=== PATIENT | female | born 1975 | race Caucasian/White ===

== ENCOUNTER 2020-12-26 08:10 | Observation (INO) | payer MEDICAID ==
[2020-12-21 15:48] LABS: PLATELET COUNT 228 x10^3mcL (179-408)
[2020-12-21 15:49] LABS: ALBUMIN 3.5 g/dL (3.4-5.0); ALKALINE PHOSPHATASE 149 U/L (46-116); ALT/SGPT 34 U/L (14-59); AST/SGOT 15 U/L (15-37); BILIRUBIN TOTAL 0.2 mg/dL (0.20-1.00); CALCIUM 8.4 mg/dL (8.5-10.1); CARBON DIOXIDE 27.1 mmol/L (21-32); CHLORIDE SERUM 97 mmol/L (98-107); CREATININE SERUM 0.6 mg/dL (0.6-1.0); GFR1 > 60 mL/min; GLUCOSE SERUM 306 mg/dL (74-106); POTASSIUM SERUM 3.7 mmol/L (3.5-5.1); SODIUM SERUM 128 mmol/L (136-145); TOTAL PROTEIN, SERUM 7.5 g/dL (6.4-8.2)
[2020-12-21 15:52] LABS: RED CELL DISTRIBUTION WIDTH 16.5 % (12.3-17.7)
--- NOTE | 2020-12-21 16:18 | NUR ---
COPIES OF LABS AND EKG TAKEN TO OR FOR ANESTHESIA TO REVIEW. FAXED ALSO TO DR FRANKI MCLAUGHLIN'S OFFICE, SPOKE WITH JYOTSNA. WILL HAVE MD REVIEW AND CALL WITH ANY FURTHER ORDERS.
--- NOTE | 2020-12-22 14:23 | NUR ---
COPY OF H&P REVIEWED BY ANESTHESIOLOGIST DR GAGE. PT WILL NEED MEDICAL CLEARANCE TO CONTROL BLOOD SUGAR PRIOR TO SURGERY. [id number]=[phone] ON 12-21-20 PREOP VISIT. CALL TO DR FRANKI MCLAUGHLIN'S OFFICE, SPOKE WITH LOCO. SHE WILL CALL PT TO SEE PCP PRIOR TO SURGERY FOR CLEARANCE.
--- NOTE | 2020-12-25 11:35 | NUR ---
T/C DR. MCLAUGHLIN'S OFFICE AND TALKED TO LOCO TO FOLLOW UP MEDICAL CLEARANCE DUE TO PATIENT'S HIGH BS. LOCO WILL TALK TO DR. MCLAUGHLIN FOR FURTHER INSTRUCTION AND WILL CALL [facility] [place] FOR UPDATE. ALSO, T/C THE PATIENT; PER PATIENT, DR. MCLAUGHLIN'S OFFICE STAFF CALLED TO TALK TO HER ON FRIDAY ABOUT HER HIGH BLOOD SUGAR LEVEL.
[~2020-12-26] VITALS: Ht 175.3 cm; Wt 68.3 kg
[2020-12-26 08:34] VITALS: BP 119/76
[2020-12-26 08:57] LABS: CALCIUM 9.2 mg/dL (8.5-10.1); CARBON DIOXIDE 30.3 mmol/L (21-32); CHLORIDE SERUM 102 mmol/L (98-107); CREATININE SERUM 0.6 mg/dL (0.6-1.0); GFR1 > 60 mL/min; GLUCOSE SERUM 121 mg/dL (74-106); POTASSIUM SERUM 3.7 mmol/L (3.5-5.1); SODIUM SERUM 138 mmol/L (136-145)
--- NOTE | 2020-12-26 18:36 | NUR ---
RECEIVED FROM OR AWAKE, ALERT AND ORIENTED X4. IN NO RESP. DISTRESS. ON RA SATS 97%. NO SOB NOTED. NO C/O PAIN OR DISCOMFORT. INCISION SITE TO ELEANOR. BREASTS WITH DRESSING COVERED SECURED WTH ABD. BINDER. NO VISIBLE BLEEDING NOTED, NO DISCHARGE. ALPHONSO DRAINS X4 IN PLACE DRAINING SMALL AMOUNT OF S/S DRAINAGE. SECURED IN PLACE. PT ORIENTED TO ROOM, CALL LIGHT WITHIN REACH. WILL CONTINUE WITH PLAN OF CARE.
[2020-12-26 18:53] VITALS: BP 128/78
--- NOTE | 2020-12-26 19:25 | NUR ---
PT TRIED TO GET OOB TO GO TO THE BATHROOM BUT BECAME SO DIZZY AND NAUSEATED. ASSISTED BACK TO BED AND CALL LIGHT WITHIN REACH. ENDORSED TO INCOMING SHIFT FOR CONT. OF CARE.
--- NOTE | 2020-12-26 19:48 | NUR ---
PT RECEIVED LYING IN BED WITH HOB ELEVATED 30 DEGREES AWAKE AND RESTING. A/OX4, CALM AND COOPERATIVE. M/S. DENIES CHEST PAIN AND LIGHTHEADEDNESS. RESPIRATIONS EVEN, UNLABORED, DIMINISHED, RA, DENIES SOB. BS ACTIVE, ABD SOFT AND ROUND, NON TENDER. DENIES N/V. NO BM OR PASSING OF FLATUS POST-OP. UOP ADEQUATE. ALPHONSO DRAIN X 4, 2 TO EACH BREAST. SEROSANGUINEOUS OUTPUT. ABD BINDER IN PLACE. PT REPORTS PAIN, BUT REFUSES PAIN MEDS AT THIS TIME. SL LFA 20G, PATENT, NO COMPLICATIONS TO SITE. PT HAS GENERALIZED WEAKNESS AND REPORTS DIZZINESS WITH ATTEMPT TO AMBULATE. BEDREST AT THIS TIME. BED IN LOWEST POSOTION, SIDE RAILS X 2, CALL LIGHT WITHIN REACH.
[2020-12-26 21:23] VITALS: BP 106/65
[2020-12-27 05:16] VITALS: BP 102/54
--- NOTE | 2020-12-27 06:29 | NUR ---
NO ACUTE CHANGES OVERNIGHT. PT REMAINS A/OX4 ON RA. PT REPORTS PAIN TO CHEST HOWEVER REFUSES PAIN MEDICATION AT THIS TIME DUE TO EMPTY STOMACH. PT PROVIDED WITH APPLE SAUCE. PT EDUCATED TO REPORT N/V OR READINESS FOR PAIN MEDICATION, VERBALIZED UNDERSTANDING. PT AMBULATORY WITH STEADY GAIT. ALPHONSO DRAIN X 4, PATENT, SEROSANGUINEOUS OUTOUT. TOTAL OUTPUT 90ML. ALPHONSO#1 20ML, ALPHONSO#2 35ML, ALPHONSO#3 20ML, ALPHONSO#4 15ML. ALL NEEDS MET AT THIS TIME. BED IN LOWEST POSITION, SIDE RAILS X 2, CALL LIGHT WITHIN REACH.
--- NOTE | 2020-12-27 07:30 | NUR ---
RECIEVED REPORT FROM [employer]PER[employer] FACING [employer], PATIENT IS AWAKE AND ALERT, REPORTS MILD PAIN IN SURGICAL SITE, PATIENT IS ON ROOM AIR, NO FLUIDS RUNNING, LEFT PATIENT RESTING WITH ALL NEEDS ATTENDED TO.
[2020-12-27 08:48] VITALS: BP 98/56
[2020-12-27 12:43] VITALS: BP 110/63
[2020-12-27 13:57] VITALS: BP 110/63
--- NOTE | 2020-12-27 16:04 | NUR ---
PATIENT IS ON ROOM AIR, DENIES CHEST PAIN, DENIES BODY PAIN, DENIES DIFFICULTY BREATHING, VS STABLE. J PEG DRAIN HAD 55 CC EMPTIED AT 1500, PATIENT SIGNED REQUIRED FORMS, WAS PROVIDED EDUCTION MATERIAL, REMOVED PATIENTS IV, ASSISTED IN GATHERING PATIENTS PERSONAL ITEMS, PATIENT WAS TAKEN DOWN TO HER RIDE WITH HER BELONGINGS AND DICHARGE PACKET.
== END 2020-12-27 16:01 | disposition home or self-care (01) ==
LOC: DS 08:10 → NM 09:00 → OR 12:30 → MU 17:42 → DS 17:43 → MU 17:43
PROVIDERS: ADMIT Surgery; ATTEND Surgery
DX: C50.912 Malignant neoplasm of unspecified site of left female breast (principal); Z20.822 Contact with and (suspected) exposure to COVID-19
CPT/HCPCS: 82962; 88329; 88344; G0378; J0131; J0690; J1170; J2405; J3010; J3490; Q9968